=== PATIENT | male | born 1970 | race Caucasian/White ===

== ENCOUNTER 2017-09-05 15:48 | Emergency (ER) | payer OTHER ==
[2017-09-05] MEDS: HYDROCODONE/APAP (10/325) TAB PO (17:49)
[2017-09-05] MEDS: KETOROLAC 30 MG INJ IM (17:50)
== END 2017-09-05 18:43 | disposition home or self-care (01) ==
LOC: FTE 15:48
DX: M54.32 Sciatica, left side (principal); E11.9 Type 2 diabetes mellitus without complications
CPT/HCPCS: 96372; 99284-25

== ENCOUNTER 2017-12-16 03:19 | Emergency (ER) | payer OTHER ==
[2017-12-16] MEDS: DIAZEPAM 5 MG TAB PO (04:10)
== END 2017-12-16 05:50 | disposition home or self-care (01) ==
LOC: FTE 03:19
DX: M51.36 Other intervertebral disc degeneration, lumbar region (principal); E11.9 Type 2 diabetes mellitus without complications
CPT/HCPCS: 72100; 99283-25